=== PATIENT | female | born 1995 | race African-American/Black ===

== ENCOUNTER 2019-12-18 21:55 | Emergency (ER) | payer BC ==
[2019-12-18 22:03] VITALS: BP 113/70; PULSE 82; TEMP 97.6; BMI 22.1
--- NOTE | 2019-12-18 22:18 | PDOC ---
History of Present Illness - General Chief Complaint: Vaginal Bleeding Stated Complaint: 9 WEEKS /VAGINAL BLEEDING Time Seen by Provider: 12/18/19 22:17 - History of Present Illness Initial Comments: 12/18/19 22:58 24yo healthy F @9weeks by US and LMP followed by her OBGYN in [facility] presents w/ 45 minutes vaginal bleeding after intercourse. No clots or POC; "it looks like i'm having my period." No cramping or lightheadedness. No recent illness - no fevers, n/v/d. takes prenatals, azithromycin (recently dx w/ chlamydia), and zofran for nausea. Past History - Medical History Allergies/Adverse Reactions: Allergies Allergy/AdvReac Type Severity Reaction Status Date / Time No Known Allergies Allergy Verified 12/18/19 22:03 COPD: No - Reproductive History Is Patient Now?: Yes - Psycho-Social/Smoking History Smoking History: Never smoked - Substance Abuse Hx (Audit-C & DAST Scrn) How often the patient has a drink containing alcohol: Never Score: In Men: 4 or > Positive; In Women: 3 or > Positive: 0 Screen Result (Pos requires Nsg. Audit-10AR): Negative In the last yr the pt used illegal drug/Rx for NonMed reason: No Score: Yes response is considered Positive: 0 Screen Result (Positive result requires Nsg. DAST-10): Negative Review of Systems - Review of Systems Able to Perform ROS?: Yes Is the patient limited Burkinan proficient: No Constitutional: No: Chills, Diaphoresis, Fever HEENTM: No: Symptoms Reported Respiratory: No: Symptoms reported Cardiac (ROS): No: Symptoms Reported ABD/GI: No: Symptoms Reported, Blood Streaked Bowels, Abdominal cramping : Yes: Other (vaginal bleeding). No: Burning, Dysuria, Hematuria Musculoskeletal: No: Symptoms Reported Integumentary: No: Symptoms Reported Neurological: No: Symptoms reported Endocrine: No: Symptoms Reported Hematologic/Lymphatic: No: Symptoms Reported All Other Systems: Reviewed and Negative *Physical Exam - Vital Signs Last Vital Signs Temp Pulse Resp BP Pulse Ox 97.6 F 82 19 113/70 100 12/18/19 22:00 12/18/19 22:00 12/18/19 22:00 12/18/19 22:00 12/18/19 22:00 - Physical Exam General Appearance: Yes: Nourished, Appropriately Dressed, Thin. No: Apparent Distress HEENT: positive: EOMI, OSEAS Neck: positive: Trachea midline, Supple. negative: Tender Respiratory/Chest: positive: Lungs Clear, Normal Breath Sounds. negative: Labored Respiration Cardiovascular: positive: Regular Rhythm, Regular Rate Female Pelvic Exam: positive: normal external exam, cervical os closed, vaginal bleeding. negative: discharge, lesions, Bartholin mass Gastrointestinal/Abdominal: positive: Normal Bowel Sounds, Soft Musculoskeletal: positive: Normal Inspection. negative: CVA Tenderness Extremity: positive: Normal Capillary Refill, Normal Inspection, Normal Range of Motion Integumentary: positive: Normal Color, Dry, Warm Neurologic: positive: Fully Oriented, Alert, Normal Mood/Affect ED Treatment Course - LABORATORY CBC & Chemistry Diagram: 12/18/19 22:35 12/18/19 22:35 Discharge - Discharge Information Problems reviewed: Yes Clinical Impression/Diagnosis: Subchorionic bleed Qualifiers: Fetus number: single or unspecified fetus Trimester: first trimester Qualified Code(s): O41.8X10 - Other specified disorders of amniotic fluid and membranes, first trimester, not applicable or unspecified; O46.8X1 - Other antepartum hemorrhage, first trimester Disposition: HOME - Admission No - Follow up/Referral - Patient Discharge Instructions Patient Printed Discharge Instructions: DI for Vaginal Bleeding, Early Bleeding, DI for Vaginal Bleeding During Additional Instructions: You came to the ED with vaginal bleeding. We performed a transvaginal ultrasound and found a small sub-chorionic hemorrhage. The fetus is ok, but you must exhibit pelvic rest (no sex or vigorous physical activity, and insert nothing into the vagina). You also must follow up with your OBGYN within 24 hours (1day) of leaving the ED tonight. Come back if the symptoms persist or worsen. - Post Discharge Activity
[2019-12-18 22:44] LABS: BASO % 0.6 % (0-2.0); HEMATOCRIT 33.2 % (32.4-45.2); HEMOGLOBIN 11.2 GM/dL (10.7-15.3); LYMPH % 26.4 % (8-40); MCH 26.7 pg (25.7-33.7); MCHC 33.7 g/dl (32.0-36.0); MEAN CELL VOLUME 79.3 fl (80-96); MEAN PLT VOLUME 7.5 fl (7.5-11.1); MONO % 9.7 % (3.8-10.2); NEUT % 62.3 % (42.8-82.8); PLATELET COUNT 294 K/MM3 (134-434); RBC 4.19 M/mm3 (3.60-5.2); RDW 17.9 % (11.6-15.6); WHITE BLOOD COUNT 6.7 K/mm3 (4.0-10.0)
[2019-12-18 23:17] LABS: ALBUMIN 3.5 g/dl (3.4-5.0); BILIRUBIN,TOTAL 0.1 mg/dL (0.2-1); BLOOD UREA NITROGEN 12.2 mg/dL (7-18); CALCIUM 9.6 mg/dL (8.5-10.1); POTASSIUM 4.2 mmol/L (3.5-5.1); TOT PROT 7.3 g/dl (6.4-8.2)
[2019-12-18 23:45] LABS: EPI CELLS 7 /uL (0-25.1); HYALINE CASTS 0 /uL (0-3.1); URINE APPEARANCE CLEAR; URINE BACTERIA 22 /uL (0-1359); URINE BILIRUBIN NEGATIVE (NEGATIVE); URINE COLOR YELLOW; URINE GLUCOSE (UA) NEGATIVE (NEGATIVE); URINE KETONE NEGATIVE (NEGATIVE); URINE LEUK ESTERASE NEGATIVE (NEGATIVE); URINE NITRITE NEGATIVE (NEGATIVE); URINE PROTEIN NEGATIVE (NEGATIVE); URINE RBC 28 /uL (0-23.9); URINE WBC 1 /uL (0-25.8)
[2019-12-18 23:46] LABS: INR 0.98 (0.83-1.09); PROTHROMBIN TIME (PATIENT) 11.6 SEC (9.7-13.0)
[2019-12-18 23:49] LABS: ACTIVATED PTT 26.4 SECONDS (25.2-36.5)
--- NOTE | 2019-12-19 00:02 | PDOC ---
Attending Attestation - Resident Resident Name: Sorin Egan - ED Attending Attestation I have performed the following: I have examined & evaluated the patient, The case was reviewed & discussed with the resident, I agree w/resident's findings & plan, Exceptions are as noted - HPI HPI: 12/19/19 00:49 See resident HPI - Physicial Exam PE: 12/19/19 00:50 Agree with documented exam - Medical Decision Making 12/19/19 00:53 24F preg with vaginal bleeding, Os closed f/u labs including hcg, t/s, tvus dispo per clinical course Discharge - Discharge Information Problems reviewed: Yes Clinical Impression/Diagnosis: Subchorionic bleed Qualifiers: Fetus number: single or unspecified fetus Trimester: first trimester Qualified Code(s): O41.8X10 - Other specified disorders of amniotic fluid and membranes, first trimester, not applicable or unspecified Disposition: HOME - Follow up/Referral - Patient Discharge Instructions Patient Printed Discharge Instructions: DI for Vaginal Bleeding During , Early Bleeding, DI for Vaginal Bleeding Additional Instructions: You came to the ED with vaginal bleeding. We performed a transvaginal ultrasound and found a small sub-chorionic hemorrhage. The fetus is ok, but you must exhibit pelvic rest (no sex or vigorous physical activity, and insert nothing into the vagina). You also must follow up with your OBGYN within 24 hours (1day) of leaving the ED tonight. Come back if the symptoms persist or worsen. - Post Discharge Activity
--- OUTSIDE RECORDS SUMMARY | 2019-12-19 04:36 | XMS ---
:1995 Author Organization [facility] Support Name Relationship Address Phone [facility] [address] [place] [address] MATTHEW PEÑALOZA [address] [phone] [place] [address] Re-disclosure Warning The records that you are about to access may contain information from federally- assisted alcohol or drug abuse programs. If such information is present, then the following federally mandated warning applies: This information has been disclosed to you from records protected by federal confidentiality rules (42 CFR part 2). The federal rules prohibit you from making any further disclosure of this information unless further disclosure is expressly permitted by the written consent of the person to whom it pertains or as otherwise permitted by 42 CFR part 2. A general authorization for the release of medical or other information is NOT sufficient for this purpose. The Federal rules restrict any use of the information to criminally investigate or prosecute any alcohol or drug abuse patient.The records that you are about to access may contain highly sensitive health information, the redisclosure of which is protected by Article 27-F of the [facility] Public Health law. If you continue you may haveaccess to information: Regarding HIV / AIDS; Provided by facilities licensed or operated by the [facility] Office of Mental Health; or Provided by the [facility] Office for People With Developmental Disabilities. If such information is present, then the following [facility] mandated warning applies: This information has been disclosed to you from confidential records which are protected by state law. State law prohibits you from making any further disclosure of this information without the specific written consent of the person to whom it pertains, or as otherwise permitted by law. Any unauthorized further disclosure in violation of state law may result in a fine or detention sentence or both. A general authorization for the release of medical or other information is NOT sufficient authorization for further disclosure. Insurance Providers Payer name Policy type / Policy ID Covered Covered democrat's Policy Plan Coverage type democrat ID relationship to Mehta Information mehta BC OUT OF [id number] [id number]
== END 2019-12-19 00:31 | disposition home or self-care (01) ==
LOC: JER 21:55
DX: O46.8X1 Other antepartum hemorrhage, first trimester (principal)
CPT/HCPCS: 36415; 76817-TC; 80053; 81003; 84702; 85025; 85610; 85730; 86850; 86900; 86901; 87086; 99284-25